=== PATIENT | female | born 1980 | race Caucasian/White ===

== ENCOUNTER → 2018-11-19 | Outpatient (CLI) | payer BC ==
--- NOTE | 2018-11-19 18:40 | Diagnostic Imaging Report ---
INDICATION: Routine screening. COMPARISON: No prior mammograms are available for comparison. This is a baseline study. TECHNIQUE: 2D and 3D bilateral screening mammography was performed with computer-aided detection (CAD) system. FINDINGS: Scattered fibroglandular densities are identified bilaterally. No dominant mass or malignant-appearing microcalcifications are seen. The axillae are unremarkable. IMPRESSION: No mammographic features suspicious for malignancy are identified. ACR BI-RADS Category 1: Negative. Result letter will be mailed to the patient. Note: At least 10% of breast cancer is not imaged by mammography. Dictated by: Dictated on workstation # [id number]
== END ==
LOC: RAD 11:20
PROVIDERS: ATTEND Obstetrics & Gynecology
DX: Z12.31 Encounter for screening mammogram for malignant neoplasm of breast (principal)
CPT/HCPCS: 77067

== ENCOUNTER 2018-12-14 14:59 | Outpatient (RCR) | payer BC ==
[2019-02-12] MEDS ORDERED: NF-NORETH5 (09:54)
[2019-02-12] MEDS ORDERED: TRAN650T2 PO (10:28)
[2019-02-12] MEDS ORDERED: NITR100C PO (10:28)
[2019-02-12] MEDS ORDERED: ACHD5005 PO (10:28)
[2019-02-12] MEDS ORDERED: ONDA4TAB11 PO (10:28)
== END 2019-03-14 | disposition home or self-care (01) ==
LOC: CARD 14:59
PROVIDERS: ATTEND Obstetrics & Gynecology
DX: I49.9 Cardiac arrhythmia, unspecified (principal)
CPT/HCPCS: 93225; 93226

== ENCOUNTER 2019-02-12 08:06 | Emergency (ER) | payer BC ==
[~2019-02-12] VITALS: Ht 172.7 cm; Wt 111.1 kg
--- OUTSIDE RECORDS SUMMARY | 2019-02-12 08:10 | XMS REPORT ---
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 Problem List Description Status Onset *No known medical problems Active Vital Signs Date Time BP-Sys(mm[Hg] BP-Sunshine(mm[Hg]) HR(bpm) RR(rpm) Temp WT HT HC BMI BSA BMI Percentile O2 Sat(%) 09/02/2015 10:14:00 AM 130 mmHg 74 mmHg 67 bpm 29 rpm 97.4 F 230 lbs 68 in 34.97 kg/m2 2.24 m2 97 % Social History Name Description Comments Tobacco Never smoker No Alcohol Use History of Procedures Date Ordered Description Order Status 09/02/2015 12:00 AM Depo-Medrol, Per 80 Mg [facility]#[id number] Reviewed 09/02/2015 12:00 AM Decadron, Per 1 Mg [facility]# [id number] Reviewed Results Summary Not available. History Of Immunizations Not available. History of Past Illness Name Date of Onset Comments *No known medical problems Poison maximilian Sep 02 2015 10:17AM Payers Insurance Name Company Name Plan Name Plan Number Policy Number Policy Group Number Start Date [facility] [id number] Saturday, 2015 [employer] [id number] N/A History of Encounters Visit Date Visit Type Provider 09/02/2015 Office visit Jorge Dorantes APRN 08/25/2009 Office visit Anthony Gregory MD 08/18/2009 [facility] Anthony Gregory MD 08/03/2009 Office visit Anthony Gregory MD 07/24/2009 Office visit Anthony Gregory MD 07/17/2009 Office visit Anthony Gregory MD
--- OUTSIDE RECORDS SUMMARY | 2019-02-12 08:11 | XMS REPORT | Continuity of Care Document ---
Author Author [facility] Organization [facility] Address Unknown Phone Unavailable Allergies There is no data. Medications There is no data. Problems Date Dx Coded Attending Type Code Diagnosis Diagnosed By 12/22/2014 SAHIL JENNINGS MD Ot 620.2 11/20/2018 WILMER MENJIVAR DO, Ot Z12.31 ENCNTR SCREEN MAMMOGRAM FOR MALIGNANT NE 12/02/2018 WILMER MENJIVAR DO, Ot Z12.31 ENCNTR SCREEN MAMMOGRAM FOR MALIGNANT NE 12/14/2018 SAHIL JENNINGS MD Ot 620.2 OVARIAN CYST NEC/NOS 12/14/2018 SAHIL JENNINGS MD Ot 621.8 DISORDERS OF UTERUS NEC 12/14/2018 SAHIL JENNINGS MD Ot 626.8 MENSTRUAL DISORDER NEC 12/14/2018 DICK TOSCANO, SAHIL Finney Ot 793.5 NOSP (ABN) FINDINGS ON RADIOLOGICAL OT 12/14/2018 SAHIL JENNINGS MD Ot 620.2 OVARIAN CYST NEC/NOS 12/14/2018 DICK TOSCANO, SAHIL Finney Ot 620.2 OVARIAN CYST NEC/NOS 12/14/2018 WILMER MENJIVAR DO Ot Z12.31 ENCNTR SCREEN MAMMOGRAM FOR MALIGNANT NE 01/06/2019 WILMER MENJIVAR DO Ot I49.9 CARDIAC ARRHYTHMIA, UNSPECIFIED Procedures There is no data. Results Test Result Range CBC with Auto Diff - 09/20/16 10:40 Baso% 1.00 % 0.00-2.50 Eos 0.1 K/uL 0.0-0.7 Eos% 1.0 % 0.0-7.0 Hct 41.1 % 36.0-46.0 Hgb 13.9 g/dL 13.0-15.0 Lym 1.81 K/uL 0.60-3.40 Lym% 34.9 % 10.0-50.0 MCH 28.3 pg 27.0-31.0 MCHC 33.8 g/dL 32.0-36.0 MCV 83.5 fL 80.0-97.0 Hays% 7.3 % 0.0-12.0 MPV 10.0 fL 7.4-10.0 Lino% 55.8 % 37.0-80.0 Plt 241 K/uL 150-400 RBC 4.92 M/uL 3.60-5.00 RDW 12.3 % 11.6-14.8 WBC 5.18 K/uL 5.00-10.00 Lino 2.89 K/uL 2.00-6.90 [place] 0.4 K/uL 0.0-0.9 Baso 0.1 K/uL 0.0-0.2 Urine Culture - 03/13/17 16:56 PRELIM CULTURE RESULTS >100,000 Gram Negative Lactose Storage Battery Tester AUGUSTUS / ID to Follow MEDIA PLATED Setup at 16:58 on 03/13/2017 CULTURE SOURCE [id number] Sensi - 03/13/17 16:56 FINAL CULTURE RESULTS Escherichia coli (Isolate 1) Ampicillin/Sulbactam 16/8 Ampicillin >16 Amoxicillin/K Clavulanate <=8/4 Ceftriaxone <=8 Ciprofloxacin <=1 Nitrofurantoin <=32 Gentamicin <=4 Levofloxacin <=2 Trimethoprim/ Sulfamethoxazole >2/38 Tetracycline <=4 Amikacin <=16 Aztreonam <=8 Ceftazidime <=1 Ceftazidime/K Clavulanate <=0.25 Cephalothin >16 Cefotaxime <=2 Cefotaxime/K Clavulanate <=0.5 Cefoxitin <=8 Cefazolin <=8 Cefepime <=8 Cefuroxime <=4 Ertapenem <=1 Imipenem <=4 Meropenem <=4 Piperacillin/Tazobactam <=16 Piperacillin >64 Tigecycline <=2 Tobramycin <=4 Encounters ACCT No. Visit Date/Time Discharge Status Pt. Type Provider Facility Loc./Unit Complaint [id number] 12/14/2018 14:59:00 12/14/2018 23:59:59 CLS Outpatient WILMER MENJIVAR DO [facility] CARD REGULARLY IRREGULAR PULSE RHYTHYM [id number] 12/09/2018 12:46:00 12/09/2018 23:59:59 CLS Preadmit WILMER MENJIVAR DO [facility] RAD SCREENING [id number] 11/19/2018 11:20:00 11/19/2018 23:59:59 CLS Outpatient WILMER MENJIVAR DO [facility] RAD SCREENING [id number] 11/21/2014 10:13:00 11/21/2014 23:59:59 CLS Outpatient SAHIL JENNINGS MD [facility] RAD ENDOMETRIAL THICKENING, BILAT CYST [id number] 07/01/2014 09:39:00 07/01/2014 23:59:59 CLS Outpatient SAHIL JENNINGS MD [facility] RAD LEFT OVARIAN CYST ON PREVIOUS SONO ENDOMETRIAL THI [id number] 05/09/2014 10:57:00 05/09/2014 23:59:59 CLS Outpatient SAHIL JENNINGS MD [facility] RAD DUB [id number] 02/12/2019 08:07:00 ACT Emergency KIMBERLEE TOSCANO, ROSALVA Parra [facility] ER VAGINAL BLEEDING;VOMITING;DIZZINESS [id number] 03/13/2017 16:55:00 03/13/2017 23:59:00 DIS Outpatient Chiara Bloom [id number] 09/20/2016 10:36:00 Document Registration [id number] 11/21/2014 10:16:19 ACT Document Registration
[2019-02-12] MEDS ORDERED: LACTATED RINGERS 1,000 ML IV SCH (08:30)
--- NOTE | 2019-02-12 08:33 | ED GU-Female ---
General Stated Complaint: VAGINAL BLEEDING;VOMITING;DIZZINESS Source: patient Exam Limitations: no limitations History of Present Illness Date Seen by Provider: Feb 12, 2019 Time Seen by Provider: 08:15 Initial Comments The patient presents to ER by private conveyance with her mother and chief complaint the past day and a half she has been having heavy vaginal bleeding with most recently using 4 pads every hour. She's had to have multiple D&Cs in the past. She also has a history of hyperplasia of the endometrium with atypia which she has been having endometrial biopsies every few years for the past several years. She follows with Dr. Menjivar saw her last Friday. Dr. Menjivar's doing some outpatient workup to include B12 testing told her that her vitamin B12 was low but she does not know what her hemoglobin was at baseline. She says she's had 2 almost have transfusions in the past. She says most recently when discussing with Dr. Menjivar her plan was to do a total hysterectomy as opposed to another D&C. She's also having some abdominal cramping and pain that has been fairly constant starting at about 3:00 this morning and around 7-8 out of 10. Then this morning she vomited with the pain which she decided was the final straw so the patient called her mother to bring her into the ER. Allergies and Home Medications Allergies Coded Allergies: diphenhydramine (Verified Allergy, Unknown, stopped breathing, 02/12/19) Patient Home Medication List Home Medication List Reviewed: Yes Review of Systems Review of Systems Constitutional: No chills, No diaphoresis EENTM: No ear discharge, No ear pain Respiratory: No cough, No short of breath Cardiovascular: No chest pain, No edema Gastrointestinal: abdominal pain (pelvic); No constipation, No diarrhea, No nausea Genitourinary: see HPI; denies burning, denies dysuria Past [id number] Hx Patient Social History Alcohol Use: Denies Use Recreational Drug Use: No Smoking Status: Never a Smoker Recent Foreign Travel: No Contact w/Someone Who Travel: No Physical Exam Vital Signs Vital Signs - First Documented 02/12/19 08:41 Temp 97.0 Pulse 82 Resp 18 B/P (MAP) 148/98 (115) Pulse Ox 98 O2 Delivery Room Air Capillary Refill : Height, Weight, BMI Height: '" Weight: lbs. oz. kg; BMI Method: General Appearance: WD/WN, mild distress HEENT: PERRL/EOMI, pharynx normal Cardiovascular: normal peripheral pulses, regular rate, rhythm, no edema Respiratory: no respiratory distress, no accessory muscle use Gastrointestinal: normal bowel sounds, non tender, soft, no organomegaly Extremities: non-tender, normal inspection, normal capillary refill Neurologic/Psychiatric: alert, normal mood/affect, oriented x 3 Skin: normal color, warm/dry Progress/Results/Core Measures Suspected Sepsis SIRS Temperature: Pulse: Respiratory Rate: Laboratory Tests 02/12/19 08:28: White Blood Count 7.9 Blood Pressure / Mean: Laboratory Tests 02/12/19 08:28: Creatinine 0.90, Platelet Count 279, Total Bilirubin 0.6 Results/Orders Lab Results Laboratory Tests Test 02/12/19 08:28 02/12/19 08:43 Range/Units White Blood Count 7.9 4.3-11.0 10^3/uL Red Blood Count 4.70 4.35-5.85 10^6/uL Hemoglobin 13.6 11.5-16.0 G/DL Hematocrit 39 35-52 % Mean Corpuscular Volume 84 80-99 FL Mean Corpuscular Hemoglobin 29 25-34 PG Mean Corpuscular Hemoglobin Concent 35 32-36 G/DL Red Cell Distribution Width 13.8 10.0-14.5 % Platelet Count 279 130-400 10^3/uL Mean Platelet Volume 10.4 7.4-10.4 FL Neutrophils (%) (Auto) 80 H 42-75 % Lymphocytes (%) (Auto) 15 12-44 % Monocytes (%) (Auto) 4 0-12 % Eosinophils (%) (Auto) 1 0-10 % Basophils (%) (Auto) 1 0-10 % Neutrophils # (Auto) 6.3 1.8-7.8 X 10^3 Lymphocytes # (Auto) 1.2 1.0-4.0 X 10^3 Monocytes # (Auto) 0.3 0.0-1.0 X 10^3 Eosinophils # (Auto) 0.1 0.0-0.3 10^3/uL Basophils # (Auto) 0.0 0.0-0.1 10^3/uL Sodium Level 141 135-145 MMOL/L Potassium Level 3.5 L 3.6-5.0 MMOL/L Chloride Level 110 H 98-107 MMOL/L Carbon Dioxide Level 21 21-32 MMOL/L Anion Gap 10 5-14 MMOL/L Blood Urea Nitrogen 7 7-18 MG/DL Creatinine 0.90 0.60-1.30 MG/DL Estimat Glomerular Filtration Rate > 60 BUN/Creatinine Ratio 8 Glucose Level 104 70-105 MG/DL Calcium Level 8.6 8.5-10.1 MG/DL Corrected Calcium 8.5 8.5-10.1 MG/DL Total Bilirubin 0.6 0.1-1.0 MG/DL Aspartate Amino Transf (AST/SGOT) 16 5-34 U/L Alanine Aminotransferase (ALT/SGPT) 21 0-55 U/L Alkaline Phosphatase 70 40-136 U/L Total Protein 7.2 6.4-8.2 GM/DL Albumin 4.1 3.2-4.5 GM/DL Serum Test, Qualitative NEGATIVE NEGATIVE Urine Color ALLYSON H Urine Clarity BLOODY H Urine pH 6 5-9 Urine Specific [place] 1.020 1.016-1.022 Urine Protein 3+ H NEGATIVE Urine Glucose (UA) NEGATIVE NEGATIVE Urine Ketones 4+ H NEGATIVE Urine Nitrite POSITIVE H NEGATIVE Urine Bilirubin NEGATIVE NEGATIVE Urine Urobilinogen 1 NORMAL MG/DL Urine Leukocyte Esterase 2+ H NEGATIVE Urine RBC (Auto) 5+ H NEGATIVE Urine RBC TNTC H /HPF Urine WBC 0-2 /HPF Urine Squamous Epithelial Cells NONE /HPF Urine Crystals NONE /LPF Urine Bacteria NEGATIVE /HPF Urine Casts NONE /LPF Urine Mucus NEGATIVE /LPF Urine Culture Indicated YES My Orders Orders - ROSALVA MOHAN Ua Culture If Indicated (02/12/19 08:09) Cbc With Automated Diff (02/12/19 08:25) Comprehensive Metabolic Panel (02/12/19 08:25) Saline Lock/Iv-Start (02/12/19 08:25) Lactated Ringers (Lr 1000 Ml Iv Solution (02/12/19 08:30) Ketorolac Injection (Toradol Injection) (02/12/19 08:45) Hcg,Qualitative Serum (02/12/19 08:49) Urine Culture (02/12/19 08:43) Ceftriaxone For Iv Use (Rocephin For I (02/12/19 09:15) Us Non Ob Transvaginal [id number] (02/12/19 09:55) Medications Given in ED Current Medications Medications Dose Ordered Sig/Valery Route Start Time Stop Time Status Last Admin Dose Admin Ceftriaxone Sodium 1000 mg/ Sterile Water 10 ml @ 200 mls/hr ONCE ONCE IV 02/12/19 09:15 02/12/19 09:17 DC 02/12/19 09:52 200 MLS/HR Ketorolac Tromethamine 30 mg ONCE ONCE IVP 02/12/19 08:45 02/12/19 08:46 DC 02/12/19 08:39 30 MG Vital Signs/I&O 02/12/19 08:41 Temp 97.0 Pulse 82 Resp 18 B/P (MAP) 148/98 (115) Pulse Ox 98 O2 Delivery Room Air Capillary Refill : Progress Note : Time: 08:39 Progress Note We'll check CBC CMP and give her some gentle fluids and IV. We'll give her Toradol for her pain. We'll then discussed the case after getting a urinalysis and hCG with Dr. Menjivar. If she is soaking 4 pads an hour then it's probably time to consider surgical intervention. Diagnostic Imaging Diagonstic Imaging: Ultrasound Plain Films/CT/US/NM/MRI: pelvis (transvaginal) Comments 2.4 cm endometrial hyperplasia but no mass seen. Ovaries were not visualized. Reviewed: Reviewed by Me Consults Consults : Consulting Physician: WILMER MENJIVAR DO Consults Notes Left voicemail at 0930. Discussed case lab findings and history of 4 pads per hour. She says in the past the patient is wanted to put off surgery until August. She would recommend since the hemoglobin is good to do oral TXA 650 mg 2 tablets by mouth 3 times a day up to 5 days until bleeding stops. Expect bleeding to stop using by day 2 or 3. Follow-up in the clinic. She would like us to get an ultrasound today because of a history of atypia and if his anything unusual call her back otherwise follow up outpatient. Departure Impression Primary Impression: Abnormal uterine bleeding (AUB) Additional Impressions: Urinary tract infection Qualified Codes: N30.01 - Acute cystitis with hematuria Endometrial hyperplasia with atypia Disposition: HOME, SELF-CARE Condition: Stable Departure-Patient Inst. Decision time for Depature: 10:31 Referrals: FLOR ARROYO MD (PCP) Primary Care Physician WILMER MENJIVAR DO (Family) Primary Care Physician Patient Instructions: Heavy Periods (DC), Tranexamic Acid Add. Discharge Instructions: Continue your norethindrone. Follow-up with Dr. Menjivar outpatient. Take 2 tablets of the tranexamic acid 650 mg by mouth up to 3 times a day for up to 5 days until bleeding stops. Expect results usually by day 3. Your hemoglobin is good today, 13.6, however if you begin to have shortness of breath or chest pains then this could be an indication that you have lost too much blood and you should re-present to the nearest ER for further evaluation. Continue to take the Macrobid one tablet twice a day with food either until completion or until we call you with the culture results and change it. Because of the urine contamination it's difficult to know if there really was a bladder infection. Use ibuprofen and/or Tylenol as necessary for pain or fever breakthrough pain you may use the hydrocodone one tablet every 6 hours as needed. Hydrocodone will cause drowsiness as well as constipation. If you have nausea or vomiting again you can take one tablet of Zofran every 6 hours as needed. Scripts Nitrofurantoin Macrocrystal (Nitrofurantoin) 100 Mg Capsule 100 MG PO BID, #14 CAP 0 Refills Prov: ROSALVA MOHAN 02/12/19 Hydrocodone Bit/Acetaminophen (Hydrocodone/Acetaminophen 5/325mg Tablet) 1 Tab Tab 1-2 EACH PO Q6H for PAIN-MODERATE MDD 10, #15 TAB 0 Refills Prov: ROSALVA MOHAN 02/12/19 Ondansetron (Ondansetron Odt) 4 Mg Tab.rapdis 4 MG PO Q6H PRN for NAUSEA/VOMITING, #12 TAB 0 Refills Prov: ROSALVA MOHAN 02/12/19 Tranexamic Acid (Lysteda) 650 Mg Tablet 1300 MG PO TID PRN for bleeding for 5 Days, #30 TAB 0 Refills Prov: ROSALVA MOHAN 02/12/19 Work/School Note: Work Release Form Date Seen in the Emergency Department: Feb 12, 2019 Return to Work: Feb 15, 2019 Restrictions: No Restrictions ROSALVA MOHAN Feb 12, 2019 08:33
[2019-02-12 08:35] LABS: BASOPHILS % (AUTO) 1 % (0-10); EOSINOPHILS # (AUTO) 0.1 10^3/uL (0.0-0.3); EOSINOPHILS % (AUTO) 1 % (0-10); HEMATOCRIT 39 % (35-52); HEMOGLOBIN 13.6 G/DL (11.5-16.0); LYMPHOCYTES # (AUTO) 1.2 X 10^3 (1.0-4.0); LYMPHOCYTES % (AUTO) 15 % (12-44); MEAN CORPUSCULAR HEMOGLOBIN 29 PG (25-34); MEAN CORPUSCULAR HGB CONC 35 G/DL (32-36); MEAN CORPUSCULAR VOLUME 84 FL (80-99); MEAN PLATELET VOLUME 10.4 FL (7.4-10.4); MONOCYTES # (AUTO) 0.3 X 10^3 (0.0-1.0); MONOCYTES % (AUTO) 4 % (0-12); NEUTROPHILS # (AUTO) 6.3 X 10^3 (1.8-7.8); NEUTROPHILS % (AUTO) 80 % (42-75); PLATELET COUNT 279 10^3/uL (130-400); RED CELL DISTRIBUTION WIDTH 13.8 % (10.0-14.5); WHITE BLOOD COUNT 7.9 10^3/uL (4.3-11.0)
[2019-02-12] MEDS ORDERED: KETOROLAC 30 MG/ML VIAL IVP ONE (08:45)
[2019-02-12 08:49] LABS: BILIRUBIN,URINE NEGATIVE (NEGATIVE); CLARITY,URINE BLOODY; COLOR,URINE AMBER; GLUCOSE, URINE (UA) NEGATIVE (NEGATIVE); KETONES,URINE 4+ (NEGATIVE); LEUKOCYTE ESTERASE ,URINE 2+ (NEGATIVE); NITRITE,URINE POSITIVE (NEGATIVE); PH,URINE 6 (5-9); PROTEIN,URINE 3+ (NEGATIVE); UROBILINOGEN,URINE 1 MG/DL (NORMAL)
[2019-02-12 08:56] LABS: ALANINE AMINOTRANSFERASE 21 U/L (0-55); ALBUMIN 4.1 GM/DL (3.2-4.5); ALKALINE PHOSPHATASE 70 U/L (40-136); BILIRUBIN,TOTAL 0.6 MG/DL (0.1-1.0); BUN/CREATININE RATIO 8; CALCIUM 8.6 MG/DL (8.5-10.1); CARBON DIOXIDE 21 MMOL/L (21-32); CHLORIDE 110 MMOL/L (98-107); GFR ESTIMATED > 60; GLUCOSE 104 MG/DL (70-105); POTASSIUM 3.5 MMOL/L (3.6-5.0); SODIUM 141 MMOL/L (135-145); TOTAL PROTEIN 7.2 GM/DL (6.4-8.2)
[2019-02-12 08:59] LABS: BACTERIA,URINE NEGATIVE /HPF; RBC,URINE TNTC /HPF; WBC,URINE 0-2 /HPF
[2019-02-12] MEDS ORDERED: cefTRIAXone FOR IV USE 1,000 MG in WATER (STERILE) FOR INJECTION 10 ML IV ONE (09:15)
[2019-02-12] MEDS ORDERED: NF-NORETH5 (09:54)
[2019-02-12] MEDS ORDERED: ONDA4TAB11 PO (10:28)
[2019-02-12] MEDS ORDERED: TRAN650T2 PO (10:28)
[2019-02-12] MEDS ORDERED: ACHD5005 PO (10:28)
[2019-02-12] MEDS ORDERED: NITR100C PO (10:28)
[2019-02-12] MEDS ORDERED: HYDROcodone/APAP 5 MG/325 MG (LORTAB) TAB PO ONE (10:45)
--- NOTE | 2019-02-12 10:46 | Diagnostic Imaging Report ---
Indication: Endometrial hyperplasia. Correlation is made with prior ultrasound from 11/21/2014. Uterus measures 10.5 x 8.9 x 6.8 cm. The endometrium is markedly thickened at 2.5 cm. No myometrial mass is identified. Ovaries cannot be visualized. There is no adnexal mass or free fluid identified. Impression: Markedly thickened endometrium at 2.5 cm. While this could be secondary to hyperplasia, endometrial neoplasm cannot be entirely excluded. Dictated by: Dictated on workstation # [id number]
[2019-02-12 10:57] VITALS: BP 132/86
== END 2019-02-12 10:57 | disposition home or self-care (01) ==
LOC: EDUNIT# 08:06 → ER 08:07
DX: N93.9 Abnormal uterine and vaginal bleeding, unspecified (principal); N39.0 Urinary tract infection, site not specified; N85.02 Endometrial intraepithelial neoplasia [EIN]; Z88.8 Allergy status to other drugs, medicaments and biological substances; Z90.710 Acquired absence of both cervix and uterus
CPT/HCPCS: 36415; 76830; 80053; 81000; 84703; 85025; 87088

== ENCOUNTER 2019-02-16 08:52 | Day surgery (SDC) | payer BC ==
[~2019-02-16] VITALS: Ht 170.2 cm; Wt 105.9 kg
[~2019-02-16 08:52] MED LIST: ACHD5005 PO; NF-NORETH5; NITR100C PO; ONDA4TAB11 PO; TRAN650T2 PO
[2019-02-16 09:15] VITALS: BP 138/97
[2019-02-16] MEDS ORDERED: metroNIDAZOLE 500MG/100ML IVPB 100 ML IV ONE (09:15)
[2019-02-16] MEDS ORDERED: ceFAZolin INJECTION 1,000 MG in WATER (STERILE) FOR INJECTION 10 ML IV ONE (09:15)
[2019-02-16] MEDS ORDERED: CATHETER FLUSH 10 ML SYR IV PRN (09:30)
[2019-02-16] MEDS ORDERED: SCOPOLAMINE 1.5 MG (TRANSDERM-SCOP) PATCH TOP ONE (09:45)
[2019-02-16] MEDS ORDERED: SEVOFLURANE (ULTANE) 15 ML INHAL SOLN ONE (09:45)
[2019-02-16] MEDS ORDERED: KETOROLAC 30 MG/ML VIAL ONE (09:45)
[2019-02-16] MEDS ORDERED: LIDOCAINE PF 2% 5 ML (XYLOCAINE) VIAL ONE (09:45)
[2019-02-16] MEDS ORDERED: proPOfol 200 MG/20 ML (DIPRIVAN) VIAL IV ONE (09:45)
[2019-02-16] MEDS ORDERED: fentaNYL INJECTION 100 MCG/2 ML AMP ONE (09:45)
[2019-02-16] MEDS ORDERED: FAMOTIDINE 20MG/2ML IV (PEPCID) IV ONE (09:45)
[2019-02-16] MEDS ORDERED: ONDANSETRON 4 MG/2 ML (SDV) Z0FRAN IV ONE (09:45)
[2019-02-16] MEDS ORDERED: MIDAZOLAM 2 MG/2 ML (VERSED) VIAL ONE (09:45)
[2019-02-16] MEDS ORDERED: ONDANSETRON 4 MG/2 ML (SDV) Z0FRAN ONE ×2 (09:48→09:50)
[2019-02-16] MEDS ORDERED: DEXAMETHASONE 10 MG/ML (DECADRON) 1 ML VIAL ONE (09:48)
[2019-02-16] MEDS ORDERED: FAMOTIDINE 20MG/2ML IV (PEPCID) ONE (09:50)
--- NOTE | 2019-02-16 11:02 | Operative Report ---
Operative Report Date of Procedure/Surgery Feb 16, 2019 Surgeon (s) WILMER MENJIVAR DO Shactor Helper (s): NA Post-Operative Diagnosis thickened endometriium, acute vaginal hemorrhage, menorrhagia, history of complex hyperplasia with atypia Procedure Performed hysteroscopy, dilation and curettage Description of Procedure Anesthesia Type: General Estimated blood loss (mL): minimal Specimen(s) collected/removed endometrial curettings Description of the Procedure Prior to the procedure we discussed the possibility of endometrial ablation. I discussed with Nany that with the history of endometrial hyperplasia with atypia I would not recommend an ablation, unless we planned to proceed with a hysterectomy in the future. She considered this and opted to proceed without the ablation as she would like to proceed with hysterectomy soon, but would like diagnosis and this bleeding to slow or stop. With informed consent, the patient was taken to the operating room where general anesthesia was found to be adequate. She was prepped and draped in the usual sterile fashion in the dorsolithotomy position. A straight cath was used to drain the bladder. A speculum was placed in the vagina and the cervix was grasped with a single toothed tenaculum. The uterus was sounded to 12 cm. Then cervix was gently dilated with Low dilators. The hysteroscope was inserted and hysteroscopy was done. There was abundant tissue that was extremely thickened, there were no obvious masses, the tissue appeared mainly proliferative and possibly polypoid. There were numerous blood clots noted intrauterine. I removed the hysteroscope and then did a dilation and curettage and removed a copious amount of tissue. There was good hemostasis. I then removed the instruments from the vagina. There was a small amount of bleeding from the cervix which was controlled with pressure from the ring forceps. The patient was awakened and taken to recovery in a stable condition. Sponge, needle and instrument counts correct times 2. Findings of the Procedure extremely thickened, proliferative endometrium with no obvious masses, blood clots. Allergies and Home Medications Allergies Coded Allergies: diphenhydramine (Verified Allergy, Unknown, stopped breathing, 02/12/19) Home Medications Hydrocodone Bit/Acetaminophen 1 Tab Tab, 1-2 EACH PO Q6H Prescribed by: ROSALVA MOHAN on 02/12/19 1028 Ondansetron 4 Mg Tab.rapdis, 4 MG PO Q6H PRN for NAUSEA/VOMITING Prescribed by: ROSALVA MOHAN on 02/12/19 1028 Tranexamic Acid 650 Mg Tablet, 1,300 MG PO TID PRN for bleeding Prescribed by: ROSALVA MOHAN on 02/12/19 1028 Patient Home Medication List Home Medication List Reviewed: Yes WILMER MENJIVAR DO Feb 16, 2019 11:02
--- NOTE | 2019-02-16 11:06 | Discharge Inst-Women's Service ---
Discharge Inst-Women's Serv Depart Medication/Instructions New, Converted or Re-Newed RX: RX on Chart (already has. May take ibuprofen 600 mg po q 6 hrs prn cramping) Final Diagnosis vaginal hemorrhage menorrhagia history of complex hyperplasia with atypia Consults/Follow Up Additional Follow Up: Yes Activity Activity: Activity as Tolerated Driving Instructions: No Driving for 24 Hours NO SMOKING: NO SMOKING Nothing Inside Vagina: No Douching, No [place], No Tampons Diet Discharge Diet: No Restrictions Symptoms to Report to : Bleeding Excessive, Pain Increased, Fever Over 101 Degrees F, Vaginal Bleeding Increase For Any Problems or Questions: Contact Your Physician WILMER MENJIVAR DO Feb 16, 2019 11:06
[2019-02-16] MEDS ORDERED: LACTATED RINGERS 1,000 ML IV PRN (11:13)
[2019-02-16] MEDS ORDERED: PROMETHAZINE INJ 25 MG/ML (PHENERGAN) AMP IVP ONE (11:15)
[2019-02-16] MEDS ORDERED: ONDANSETRON 4 MG/2 ML (SDV) Z0FRAN IVP PRN (11:15)
[2019-02-16] MEDS ORDERED: KETOROLAC 30 MG/ML VIAL IVP PRN (11:15)
[2019-02-16] MEDS ORDERED: HYDROmorphone 2 MG/ML VIAL (DILAUDID) IV ONE (11:15)
[2019-02-16] MEDS ORDERED: fentaNYL INJECTION 100 MCG/2 ML AMP IVP ONE (11:15)
[2019-02-16] MEDS ORDERED: morphine INJ 10 MG/ML 1ML (SYR OR VIAL) IVP ONE (11:15)
[2019-02-16] MEDS ORDERED: MEPERIDINE (DEMEROL) INJ 50 MG/ML IVP ONE (11:15)
[2019-02-16] MEDS ORDERED: HYDROmorphone 2 MG/ML VIAL (DILAUDID) ONE (11:26)
[2019-02-16 12:00] VITALS: BP 124/88
[2019-02-16 12:05] VITALS: BP 124/88
[2019-02-16 12:30] VITALS: BP 122/87
[2019-02-16 13:00] VITALS: BP 122/89
--- NOTE | 2019-02-16 13:20 | NUR ---
YANDY, RT HERE TO DO PT.'S INCENTIVE SPIROMETRY AT THIS TIME.
== END 2019-02-16 14:25 | disposition home or self-care (01) ==
LOC: SDC 08:52
PROVIDERS: ATTEND Obstetrics & Gynecology
DX: N92.0 Excessive and frequent menstruation with regular cycle (principal); N93.9 Abnormal uterine and vaginal bleeding, unspecified; R93.89 Abnormal findings on diagnostic imaging of other specified body structures; E66.9 Obesity, unspecified; Z68.36 Body mass index [BMI] 36.0-36.9, adult; Z87.42 Personal history of other diseases of the female genital tract
CPT/HCPCS: 84703; 87081; 88305; 94664

== ENCOUNTER → 2019-11-25 | Outpatient (CLI) | payer BC ==
--- NOTE | 2019-11-25 13:21 | Diagnostic Imaging Report ---
INDICATION: Routine screening. Comparison is made with prior mammogram 11/19/2018. 2-D and 3-D bilateral screening mammography was performed with CAD. Both breasts are heterogeneously dense, limiting the sensitivity of mammography. The parenchymal pattern is stable. No dominant mass or malignant-appearing microcalcifications are seen. Axillae are unremarkable. IMPRESSION: BI-RADS Category 1 No mammographic features suspicious for malignancy are identified. ACR BI-RADS Category 1: Negative. Result letter will be mailed to the patient. Note: At least 10% of breast cancer is not imaged by mammography. Dictated by: Dictated on workstation # [id number]
== END ==
LOC: RAD 10:50
PROVIDERS: ATTEND Obstetrics & Gynecology
DX: Z12.31 Encounter for screening mammogram for malignant neoplasm of breast (principal)
CPT/HCPCS: 77067